=== PATIENT | female | born 1940 | race Caucasian/White ===

== ENCOUNTER 2017-04-14 11:27 | Emergency (ER) | payer MEDICARE, OTHER ==
[2017-04-14] MEDS: Sodium Chloride 0.9% 10 ML Syringe FLUSH PRN (11:47)
--- NOTE | 2017-04-14 12:09 | CT ---
Clinical history: 76-year-old hypertensive female with acute onset right arm "numbness" (1 hour ago). No previous CT exams head. Scan technique: Volume acquisition of data emergency unenhanced CT scan of the head and brain obtaine d with the patient lying supine on the Siemens multi slice CT scanner [place], [place]. All data archived in the PACS system for storage and study (bone/brain windows). Interpretation: 1. No sign of acute intracerebral/intraventricular/subarachnoid bleed. 2. Age-appropriate symmetric cerebral cortical and cerebellar atrophy. 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 3. Additional subtle scattered microvascular ischemic changes and isolated punctate calcification bas al ganglia on the right. 4. No supratentorial or posterior fossa mass lesion. No hydrocephalus. Brainstem unremarkable. 5. No abnormal extracerebral/intracranial epidural or subdural hematoma. 6. Uniformly thick bony calvarium. No sign of skull fracture or underlying brain contusion. 7. Symmetric clear pneumatization of the mastoid/paranasal sinuses. CONCLUSION: Ischemic changes. No intracranial bleed, mass or hydrocephalus.
--- NOTE | 2017-04-14 12:10 | EDM.PDOC ---
ED HPI GENERAL MEDICAL PROBLEM - General Chief Complaint: Neuro Symptoms/Deficits Stated Complaint: [id number] RIGHT ARM NUMB Time Seen by Provider: 04/14/17 11:30 Source of Information: Reports: Patient, Family, RN, RN Notes Reviewed History Limitations: Reports: No Limitations - History of Present Illness INITIAL COMMENTS - FREE TEXT/NARRATIVE: Pt presents to the ER with c/o new onset numbness of the right arm. She states this began about 1 hour prior to arrival. She states she was going to do some sewing and her right arm "just wasn't working right", and was numb. Patient denies any further c/o at this time. Patient denies chest pain, SOB, headache, visual or speech disturbance, or hx of previous similar episodes or stroke. Onset: Today, Sudden - Related Data Allergies Allergy/AdvReac Type Severity Reaction Status Date / Time alendronate sodium Allergy Rash Verified 04/14/17 12:04 [From Fosamax] risedronate sodium Allergy Rash Verified 04/14/17 12:04 [From Actonel] rofecoxib [From Vioxx] Allergy Rash Verified 04/14/17 12:04 Home Meds: Home Meds Albuterol [Ventolin HFA] 2 puff INH Q4H 02/14/13 [History] Aspirin [Adult Low Dose Aspirin EC] 81 mg PO DAILY 02/14/13 [History] Calcium Carbonate/Vitamin D3 [Calcium 500 + Vit D 400] 1 each PO DAILY 02/14/13 [History] Calcium Polycarbophil [Fibertab] 625 mg PO DAILY 02/14/13 [History] Cholecalciferol (Vitamin D3) [Cholecalciferol] 1,000 unit PO DAILY 02/14/13 [ History] Ezetimibe [Zetia] 10 mg PO DAILY 02/14/13 [History] Fluticasone Propionate [Flonase] 1 spray MICHAEL BID 02/14/13 [History] Fluticasone Propionate [Flovent HFA 220 MCG] 1 - 2 puff INH BID 02/14/13 [ History] Loratadine [Claritin] 10 mg PO DAILY 02/14/13 [History] Metoprolol Succinate [Toprol XL] 50 mg PO DAILY 02/14/13 [History] Multivitamin [Multi Vitamin Daily] 1 each PO DAILY 02/14/13 [History] [place]-3/DHA/Epa/Fish Oil [Fish Oil 1,000 mg Softgel] 1 each PO BID 02/14/13 [ History] Potassium Chloride [Klor-Con M20] 20 meq PO BID 02/14/13 [History] Raloxifene [Evista] 60 mg PO DAILY 02/14/13 [History] Triamterene/Hydrochlorothiazid [Triamterene-HCTZ 75-50 MG] DAILY 02/14/13 [ History] ED ROS GENERAL - Review of Systems Review Of Systems: ROS reveals no pertinent complaints other than HPI. ED EXAM, NEURO - Physical Exam Exam: See Below Exam Limited By: No Limitations General Appearance: Alert, WD/WN, No Apparent Distress Eye Exam: Bilateral Eye: EOMI, Normal Inspection, PERRL Ears: Normal External Exam, Hearing Grossly Normal Nose: Normal Inspection Throat/Mouth: Normal Inspection, Normal Voice, No Airway Compromise Head Exam: Atraumatic, Normocephalic Neck: Normal Inspection, Supple, Non-Tender, Limited Range of Motion Respiratory/Chest: No Respiratory Distress, Lungs Clear, Normal Breath Sounds, No Accessory Muscle Use, Chest Non-Tender Cardiovascular: Normal Peripheral Pulses, Regular Rate, Rhythm, No Edema, No Gallop, No JVD, No Murmur, No Rub GI/Abdominal: Normal Bowel Sounds, Soft, Non-Tender, No Organomegaly, No Distention, No Abnormal Bruit, No Mass (Female) Exam: Deferred Rectal (Female) Exam: Deferred Neurological: Alert, Normal Mood/Affect, Normal Dorsiflexion, CN II-XII Intact, Normal Plantar Flexion, Normal Gait, Normal Reflexes, No Motor/Sensory Deficits , Oriented x 3 Back Exam: Normal Inspection, Full Range of Motion, NT Extremities: Normal Inspection, Normal Range of Motion, Non-Tender, No Pedal Edema, Normal Capillary Refill, Other (equal strength bilaterally, upper and lower extremities) Psychiatric: Normal Affect, Normal Mood Skin Exam: Warm, Dry, Intact, Normal Color, No Rash EKG INTERPRETATION EKG Date: 04/14/17 Time: 11:42 Rhythm: Other (sinus bradycardia) Rate (Beats/Min): 57 Comparison: NA - No Prior EKG Course - Vital Signs Last Recorded V/S: Last Vital Signs Temp 97.6 F 04/14/17 11:33 Pulse 63 04/14/17 11:33 Resp 16 02/14/18 11:33 BP 163/80 H 04/14/17 11:33 Pulse Ox 100 04/14/17 11:33 - Orders/Labs/Meds Orders: Active Orders 24 hr Category Date Time Status EKG Documentation Completion [RC] STAT Care 04/14/17 11:36 Active Peripheral IV Care [RC] . DIRECTED Care 04/14/17 11:37 Active Sodium Chloride 0.9% [Saline Flush] Med 04/14/17 11:36 Active 10 ml FLUSH ASDIRECTED PRN Peripheral IV Insertion Adult [OM.PC] Stat Oth 04/14/17 11:36 Ordered Medication Orders Sodium Chloride (Saline Flush) 10 ml FLUSH ASDIRECTED PRN PRN Reason: Keep Vein Open Last Admin: 04/14/17 11:47 Dose: 10 ml Labs: Laboratory Tests 04/14/17 04/14/17 04/14/17 Range/Units 11:46 11:46 12:10 WBC 11.3 H (5.0-10.0) 10^3/uL RBC 4.30 (4.2-5.4) 10^6/uL Hgb 13.5 (12.0-16.0) g/dL Hct 40.5 (37.0-47.0) % MCV 94.2 (80-100) fL MCH 31.4 (27.0-34.0) pg MCHC 33.3 (33.0-35.0) g/dL Plt Count 319 (150-450) 10^3/uL Neut % (Auto) 64.8 (42.2-75.2) % Lymph % (Auto) 17.0 L (20.5-50.1) % [place] % (Auto) 14.6 H (2-8) % Eos % (Auto) 3.5 H (1.0-3.0) % Baso % (Auto) 0.1 (0.0-1.0) % Add Manual Diff Yes Neutrophils % (Manual) 70 (42-75) % Lymphocytes % (Manual) 19 L (20-50) % Monocytes % (Manual) 10 H (2-8) % Eosinophils % (Manual) 1 (1-3) % Sodium 137 (135-145) mmol/L Potassium 4.0 (3.6-5.0) mmol/L Chloride 101 (101-111) mmol/L Carbon Dioxide 25.0 (21.0-31.0) mmol/L Anion Gap 15.0 BUN 24 H (7-18) mg/dL Creatinine 0.7 (0.6-1.3) mg/dL Est Cr Clr Drug Dosing 55.68 mL/min Estimated GFR (MDRD) > 60 BUN/Creatinine Ratio 34.28 Glucose 85 (74-105) mg/dL Calcium 10.4 H (8.4-10.2) mg/dl Total Bilirubin 0.9 (0.2-1.0) mg/dL AST 25 (10-42) IU/L ALT 21 (10-60) IU/L Alkaline Phosphatase 51 (42-121) IU/L Troponin I < 0.02 (0.00-0.02) ng/ml Total Protein 7.5 (6.7-8.2) g/dl Albumin 4.2 (3.2-5.5) g/dl Globulin 3.3 Albumin/Globulin Ratio 1.27 Urine Color Yellow (YELLOW) Urine Appearance Clear (CLEAR) Urine pH 6.5 (5.0-9.0) Ur Specific [place] 1.010 (1.005-1.030) Urine Protein Negative (NEGATIVE) Urine Glucose (UA) Negative (NEGATIVE) Urine Ketones Negative (NEGATIVE) Urine Occult Blood Negative (NEGATIVE) Urine Nitrite Negative (NEGATIVE) Urine Bilirubin Negative (NEGATIVE) Urine Urobilinogen 0.2 (0.2-1.0) mg/dL Ur Leukocyte Esterase Trace H (NEGATIVE) Urine RBC 0-5 /HPF Urine WBC 0-5 (0-5/HPF) /HPF Ur Epithelial Cells Few /HPF Urine Bacteria Rare (0-FEW/HPF) /HPF Meds: Medications Generic Name Dose Route Start Last Admin Trade Name Freq PRN Reason Stop Dose Admin Sodium Chloride 10 ml 04/14/17 11:36 04/14/17 11:47 Saline Flush FLUSH 10 ml ASDIRECTED PRN Administration Keep Vein Open - Radiology Interpretation Free Text/Narrative:: Head CT: Ischemic changes. No other acute findings See rad report Departure - Departure Time of Disposition: 12:49 Disposition: Home, Self-Care 01 Clinical Impression: Numbness - Discharge Information Instructions: Paresthesia, [id number] Forms: ED Department Discharge Additional Instructions: Follow up with your primary care facility. Return to ER with any worsening symptoms. - My Orders Last 24 Hours: My Active Orders 04/14/17 11:36 EKG Documentation Completion [RC] STAT Sodium Chloride 0.9% [Saline Flush] 10 ml FLUSH ASDIRECTED PRN Peripheral IV Insertion Adult [OM.PC] Stat 04/14/17 11:37 Peripheral IV Care [RC] . DIRECTED - Assessment/Plan Last 24 Hours: My Active Orders 04/14/17 11:36 EKG Documentation Completion [RC] STAT Sodium Chloride 0.9% [Saline Flush] 10 ml FLUSH ASDIRECTED PRN Peripheral IV Insertion Adult [OM.PC] Stat 04/14/17 11:37 Peripheral IV Care [RC] . DIRECTED
[2017-04-14 12:13] LABS: CHLORIDE,CL 101 mmol/L (101-111); SODIUM,NA 137 mmol/L (135-145)
--- NOTE | 2017-04-14 18:50 | EKG ---
04/14/2017 - HAO NUÑEZ I reviewed the EKG and agree with the machine's reading. [facility] /[id number]
== END 2017-04-14 13:05 | disposition home or self-care (01) ==
LOC: DL.ED 11:27
DX: R20.0 Anesthesia of skin (principal); Z88.8 Allergy status to other drugs, medicaments and biological substances; Z79.82 Long term (current) use of aspirin; Z79.899 Other long term (current) drug therapy
CPT/HCPCS: 36415; 70450; 80053; 81001; 84484; 85025; 93005; 93010; 99284; J7050; 99282

== ENCOUNTER 2021-12-06 15:18 | Emergency (ER) | payer MEDICARE, OTHER ==
[2021-12-06] MEDS ORDERED: Lidocaine 2% with EPINEPHrine 1:200,000 20 ML SDV INJECT ONE (16:28)
== END 2021-12-06 17:45 | disposition home or self-care (01) ==
LOC: DL.ED 15:18
DX: S81.812A Laceration without foreign body, left lower leg, initial encounter (principal); S00.83XA Contusion of other part of head, initial encounter; S40.812A Abrasion of left upper arm, initial encounter; I10 Essential (primary) hypertension; W01.0XXA Fall on same level from slipping, tripping and stumbling without subsequent striking against object, initial encounter
CPT/HCPCS: 12002; 70450; 99283

== ENCOUNTER 2022-07-04 14:51 | Emergency (ER) | payer MEDICARE, OTHER | END 2022-07-04 16:12 | disposition home or self-care (01) | LOC: DL.ED 14:51 | DX: S61.411A Laceration without foreign body of right hand, initial encounter (principal); I10 Essential (primary) hypertension; E78.00 Pure hypercholesterolemia, unspecified; Z79.899 Other long term (current) drug therapy; Z79.82 Long term (current) use of aspirin; Z88.8 Allergy status to other drugs, medicaments and biological substances; Z88.1 Allergy status to other antibiotic agents; W22.8XXA Striking against or struck by other objects, initial encounter | CPT/HCPCS: 99283 ==

== ENCOUNTER 2023-05-21 00:24 | Emergency (ER) | payer MEDICARE, OTHER ==
[2023-05-21] MEDS: Acetaminophen 325 MG Tab PO ONE (00:33)
== END 2023-05-21 02:00 | disposition home or self-care (01) ==
LOC: DL.ED 00:24
DX: S80.02XA Contusion of left knee, initial encounter (principal); I10 Essential (primary) hypertension; E78.00 Pure hypercholesterolemia, unspecified; Z88.8 Allergy status to other drugs, medicaments and biological substances; Z79.82 Long term (current) use of aspirin; Z79.899 Other long term (current) drug therapy; W01.0XXA Fall on same level from slipping, tripping and stumbling without subsequent striking against object, initial encounter; Y93.01 Activity, walking, marching and hiking
CPT/HCPCS: 73560; 99282; 99283; A9270